=== PATIENT | male | born 1980 | race American Indian/Alaskan Native ===

== ENCOUNTER 2016-11-04 09:35 | Emergency (ER) | payer OTHER ==
[2016-11-04 09:44] VITALS: BP 132/83
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
== END 2016-11-04 12:47 | disposition home or self-care (01) ==
LOC: ED 09:35
DX: M54.2 Cervicalgia (principal); M54.5 Low back pain; F17.200 Nicotine dependence, unspecified, uncomplicated; V73.6XXA Passenger on bus injured in collision with car, pick-up truck or van in traffic accident, initial encounter; Y93.89 Activity, other specified; Y99.8 Other external cause status; Y92.488 Other paved roadways as the place of occurrence of the external cause
CPT/HCPCS: 99282